=== PATIENT | female | born 1990 | race Hispanic/Latino ===

== ENCOUNTER 2019-06-12 16:55 | Emergency (ER) | payer OTHER, SELFPAY ==
[2019-06-12] MEDS ORDERED: Adacel (T-DAP) 0.5 ML SYRINGE ONE (17:44)
== END 2019-06-12 18:05 | disposition home or self-care (01) ==
LOC: ERS 16:55
DX: S61.531A Puncture wound without foreign body of right wrist, initial encounter (principal); F41.9 Anxiety disorder, unspecified; R45.851 Suicidal ideations; F43.10 Post-traumatic stress disorder, unspecified; F17.210 Nicotine dependence, cigarettes, uncomplicated; Z23 Encounter for immunization; W26.0XXA Contact with knife, initial encounter
CPT/HCPCS: 90471; 90715

== ENCOUNTER 2019-10-01 03:25 | Emergency (ER) | payer OTHER, SELFPAY ==
[2019-10-01 15:38] LABS: SARS-CoV-2 MS2 Positive; SARS-CoV-2 N Gene Negative; SARS-CoV-2 S Gene Negative; SARS-CoV-2 orf1ab Negative
== END 2019-10-01 04:32 | disposition home or self-care (01) ==
LOC: ERS 03:25
DX: J02.9 Acute pharyngitis, unspecified (principal); F43.10 Post-traumatic stress disorder, unspecified; F41.9 Anxiety disorder, unspecified; F17.210 Nicotine dependence, cigarettes, uncomplicated; Z20.828 Contact with and (suspected) exposure to other viral communicable diseases
CPT/HCPCS: 87081; 87430; 87635; 99283; U0003

== ENCOUNTER 2020-01-13 12:11 | Emergency (ER) | payer OTHER ==
[2020-01-13] MEDS ORDERED: Ketorolac Tromethamine 30 MG/ML VIAL ONE (13:07)
[2020-01-13 14:05] LABS: BHCG - Serum Negative (NEGATIVE); Pregs Control Background? CLEAR/WHITE (CLR/WHITE); Pregs Control Bar Appear? YES (CONTROL BAR)
--- NOTE | 2020-01-13 14:56 | RAD ---
Exam: 3 views lumbar spine HISTORY: Fall. Pain. Injury. COMPARISON: 07/07/2013 FINDINGS: 5 lumbar type vertebra. Preserved vertebral body heights. Mild to moderate loss of disc spa ce at L4-L5. No spondylolisthesis or spondylolysis. Straightening of lumbar lordosis is presumed to be due to patient position or muscle spasm. Visualized sacrum and bony pelvis are intact. IMPRESSION: No fracture.
== END 2020-01-13 15:12 | disposition home or self-care (01) ==
LOC: ERS 12:11
DX: S39.012A Strain of muscle, fascia and tendon of lower back, initial encounter (principal); F43.10 Post-traumatic stress disorder, unspecified; F17.210 Nicotine dependence, cigarettes, uncomplicated; W18.2XXA Fall in (into) shower or empty bathtub, initial encounter; Y92.091 Bathroom in other non-institutional residence as the place of occurrence of the external cause
CPT/HCPCS: 36415; 72100; 84703; 96372; J1885

== ENCOUNTER 2020-01-14 02:05 | Emergency (ER) | payer OTHER, SELFPAY ==
[2020-01-14] MEDS ORDERED: Morphine 4 MG/ML VIAL ONE (03:26)
[2020-01-14] MEDS ORDERED: Ketorolac Tromethamine 30 MG/ML VIAL ONE (03:26)
[2020-01-14] MEDS ORDERED: Dexamethasone 10 MG/ML VIAL ONE (03:26)
--- NOTE | 2020-01-14 07:42 | CT ---
PRELIMINARY REPORT/[facility]/EMERGENCY AFTER HOURS PROCEDURE: EXAM: CT Lumbar Spine Without Intravenous Contrast. CLINICAL HISTORY: 29-year-old female reports to the ER after having acute worsening of her back pain that started yesterday. Patient states she was sitting on the toilet yesterday when she went to wipe and had a sudden onset back pain she thinks that she strained a muscle. Patient has had difficul ty walking since then and flexing from the waist. She is more comfortable in extended position. Patient cannot raise her left leg without pain radiating down to her toes on the left side. TECHNIQUE: Axial computed tomography images of the lumbar spine without intravenous contrast. Sagitta l and coronal reformations performed. COMPARISON: None provided. FINDINGS: BONES: No acute fracture or focal osseous lesion. Bony alignment is anatomic. DISCS/DEGENERATIVE CHANGES: There is intervertebral disc space narrowing and endplate Schmorl's nodes at L4-5. No significant central canal or neural foraminal stenosis. SOFT TISSUES: The paraspinal soft tissues are unremarkable. IMPRESSION: No acute lumbar spine abnormality. Degenerative disc disease at L4-5 ELECTRONICALLY SIGNED BY: Pat Aguirre MD Jan 14, 2020 3:25:17 AM CDT FINAL REPORT: CT LUMBAR SPINE WITHOUT CONTRAST: HISTORY: Fall. Back pain. FINDINGS: No abnormality with regards to the paraspinal muscles. No retroperitoneal mass, lymphadenopathy or he matoma. Visualized solid organs have appropriate attenuation. Hypodensity in the left adnexa is incompletely evaluated but is favored to be a left ovarian cyst. Cy st measures 3.9 x 3.4 cm.. Presacral fat is preserved. 5 lumbar-type vertebrae. Lumbar spine vertebral body heights are maintained. No fracture. No spondylo listhesis or spondylolysis. Limited evaluation of the contents of the central spinal canal and neural foramina. Throughout the fouzia mbar spine, there is no significant central canal stenosis. There is a posterior disc herniation at L3-L4 with mild central canal stenosis. There is a broad-based disc bulge at L4-L5 with mild central canal stenosis. Schmorl's node along the inferior endplate of L4 is noted. IMPRESSION: 1. This report is in agreement with initial report by [facility]. 2. No evidence of fracture. 3. Posterior disc herniation at L3-L4 and L4-L5 as described above. 4. Left ovarian cyst suspected. Follow-up ultrasound in 8 weeks to ensure resolution. CODE T
== END 2020-01-14 04:16 | disposition home or self-care (01) ==
LOC: ERS 02:05
DX: M19.90 Unspecified osteoarthritis, unspecified site (principal); M54.5 Low back pain; F17.210 Nicotine dependence, cigarettes, uncomplicated; F41.9 Anxiety disorder, unspecified; Z79.899 Other long term (current) drug therapy
CPT/HCPCS: 72131; 96374; 96375; J1100; J1885; J2270

== ENCOUNTER 2020-10-19 20:38 | Emergency (ER) | payer SELFPAY ==
[2020-10-19 22:07] LABS: Bilirubin Negative (Negative); Blood, Urine 1+ (Negative); Glucose, Urine (Dipstick) Normal (Negative); Ketone, Urine Negative (Negative); Leukocyte 500 Leu/uL (Negative); Nitrite Negative (Negative); Protein, Urine (Dipstick) 10 mg/dL (Neg-Trace); Specific Gravity, Urine 1.021 (1.002-1.036); Urobilinogen Normal mg/dL (Less than 2); WBC/HPF Greater than 50 HPF (0-3)
[2020-10-19 22:08] LABS: Bacteria/HPF 1+ HPF (None Seen); Clarity Cloudy (Clear)
[2020-10-19 22:09] LABS: Pregnancy Test - Urine (BHCG) Negative (Negative); Pregu Control Background? CLEAR/WHITE (CLR/WHITE); Pregu Control Bar Appear? YES (CONTROL BAR); Specific Gravity 1.021 (1.002-1.036)
== END 2020-10-19 23:29 | disposition home or self-care (01) ==
LOC: ERS 20:38
DX: N39.0 Urinary tract infection, site not specified (principal); N94.6 Dysmenorrhea, unspecified; F17.210 Nicotine dependence, cigarettes, uncomplicated
CPT/HCPCS: 81003; 81015; 81025; 99284

== ENCOUNTER 2021-01-31 17:46 | Emergency (ER) | payer SELFPAY ==
[2021-01-31 18:45] LABS: #Eosinphils 0.1 thou/uL (0.0-0.7); #Monocytes 0.5 thou/uL (0.11-0.59); #Neutrophils 3.9 thou/uL (1.40-6.50); %Basophils 0.4 % (0.0-1.0); %Eosinophils 0.9 % (0.0-10.0); %Lymphocytes 30.8 % (21.0-51.0); %Monocytes 7.5 % (0.0-10.0); %Neutrophils 60.4 % (42.0-75.0); Hemoglobin 14.6 g/dL (12.0-16.0); Mean Corpuscular Hemoglobin 32.3 pg (27.0-31.0); Mean Platelet Volume 8.9 fL (7.4-10.4); Platelet Count 264 thou/uL (130-400); RBC Distribution Width 11.9 % (11.5-14.5); Red Blood Cell (RBC) Count 4.51 mill/uL (4.20-5.40); White Blood Cell (WBC) Count 6.5 thou/uL (4.8-10.8)
[2021-01-31 18:47] LABS: Bacteria/HPF None Seen HPF (None Seen); Bilirubin Negative (Negative); Blood, Urine Negative (Negative); Clarity Clear (Clear); Glucose, Urine (Dipstick) Normal (Negative); Ketone, Urine Negative (Negative); Leukocyte Negative Leu/uL (Negative); Nitrite Negative (Negative); Protein, Urine (Dipstick) 30 mg/dL (Neg-Trace); Specific Gravity, Urine 1.033 (1.002-1.036); Urobilinogen 3 mg/dL (Less than 2); WBC/HPF 0-3 HPF (0-3); pH, Urine 6.5 (5.0-9.0)
[2021-01-31 18:48] LABS: Pregnancy Test - Urine (BHCG) Negative (Negative); Pregu Control Background? CLEAR/WHITE (CLR/WHITE); Pregu Control Bar Appear? YES (CONTROL BAR); Specific Gravity 1.033 (1.002-1.036)
[2021-01-31 19:23] LABS: Albumin 4.4 g/dL (3.5-5.0)
[2021-01-31 19:24] LABS: Chloride 103 mmol/L (98-107); Potassium 4.1 mmol/L (3.5-5.1); Sodium 139 mmol/L (136-145)
[2021-01-31 19:25] LABS: Calcium 9.8 mg/dL (7.8-10.44); Glucose 85 mg/dL (70-105)
[2021-01-31 19:26] LABS: Globulin 3.8 g/dL (2.4-3.5); Protein, Total 8.2 g/dL (6.0-8.3)
[2021-01-31 19:27] LABS: Bilirubin, Total 0.7 mg/dL (0.2-1.2); Carbon Dioxide 25 mmol/L (22-29)
[2021-01-31 19:28] LABS: Alkaline Phosphatase 65 U/L (40-110)
[2021-01-31 19:29] LABS: Calc. Creatinine Clearance 0 mL/min (70-130)
[2021-01-31 19:30] LABS: BUN (Urea Nitrogen) 10 mg/dL (7.0-18.7)
[2021-01-31 19:31] LABS: ALT (SGPT) 22 U/L (8-55); AST (SGOT) 21 U/L (5-34)
[2021-01-31 19:35] LABS: Anion Gap 14 mmol/L (10-20)
[2021-01-31] MEDS ORDERED: cefTRIAXone\\ROCEPHIN 500 MG VIAL ONE (19:38)
[2021-01-31] MEDS ORDERED: Lidocaine 1% PF 5 ML VIAL ONE (19:38)
[2021-01-31] MEDS ORDERED: Acetaminophen 500 MG TAB ONE (19:44)
== END 2021-01-31 20:00 | disposition home or self-care (01) ==
LOC: ERS 17:46
DX: A64 Unspecified sexually transmitted disease (principal)
CPT/HCPCS: 36415; 80053; 81003; 81015; 81025; 85025; 87086; 96372; 99284; J0696

== ENCOUNTER 2021-10-20 20:37 | Emergency (ER) | payer SELFPAY ==
[2021-10-20 21:29] LABS: #Basophils 0.1 thou/uL (0.0-0.2); #Lymphocytes 3.2 thou/uL (1.20-3.40); #Monocytes 0.5 thou/uL (0.11-0.59); #Neutrophils 5.2 thou/uL (1.40-6.50); %Basophils 0.8 % (0.0-1.0); %Eosinophils 0.3 % (0.0-10.0); %Lymphocytes 35.7 % (21.0-51.0); %Monocytes 5.4 % (0.0-10.0); %Neutrophils 57.7 % (42.0-75.0); Hemoglobin 14.4 g/dL (12.0-16.0); Mean Corpuscular HGB CONC 33.3 g/dL (32.0-36.0); Mean Corpuscular Hemoglobin 32.4 pg (27.0-31.0); Mean Corpuscular Volume 97.3 fL (78.0-98.0); Mean Platelet Volume 8.6 fL (7.4-10.4); Platelet Count 276 thou/uL (130-400); RBC Distribution Width 12.4 % (11.5-14.5); Red Blood Cell (RBC) Count 4.44 mill/uL (4.20-5.40)
[2021-10-20 21:53] LABS: ALT (SGPT) 15 U/L (8-55); AST (SGOT) 16 U/L (5-34); Albumin 4.3 g/dL (3.5-5.0); Alkaline Phosphatase 68 U/L (40-110); Anion Gap 15 mmol/L (10-20); BUN (Urea Nitrogen) 14 mg/dL (7.0-18.7); Bilirubin, Total 0.3 mg/dL (0.2-1.2); Calc. Creatinine Clearance 0 mL/min (70-130); Calcium 9.8 mg/dL (7.8-10.44); Carbon Dioxide 19 mmol/L (22-29); Chloride 107 mmol/L (98-107); Estimated GFR 109; Globulin 4.1 g/dL (2.4-3.5); Glucose 98 mg/dL (70-105); Potassium 3.7 mmol/L (3.5-5.1); Protein, Total 8.4 g/dL (6.0-8.3); Sodium 137 mmol/L (136-145)
[2021-10-20] MEDS ORDERED: Lorazepam 1 MG TAB ONE (23:08)
== END 2021-10-21 01:14 | disposition home or self-care (01) ==
LOC: ERS 20:37
DX: F41.9 Anxiety disorder, unspecified (principal); E78.5 Hyperlipidemia, unspecified; E78.00 Pure hypercholesterolemia, unspecified
CPT/HCPCS: 36415; 71045; 80053; 84484; 85025; 93005

== ENCOUNTER 2023-01-30 22:13 | Emergency (ER) | payer SELFPAY ==
[2023-01-30 23:14] LABS: #Eosinphils 0.1 thou/uL (0.0-0.7); #Monocytes 0.6 thou/uL (0.11-0.59); #Neutrophils 4.5 thou/uL (1.40-6.50); %Basophils 0.4 % (0.0-1.0); %Eosinophils 1.4 % (0.0-10.0); %Lymphocytes 33.8 % (21.0-51.0); %Monocytes 7.4 % (0.0-10.0); %Neutrophils 56.9 % (42.0-75.0); Hematocrit 41.7 % (36.0-47.0); Hemoglobin 13.7 g/dL (12.0-16.0); Mean Corpuscular HGB CONC 32.9 g/dL (32.0-36.0); Mean Corpuscular Hemoglobin 31.9 pg (27.0-31.0); Platelet Count 289 10x3/uL (130-400); RBC Distribution Width 13.2 % (11.5-14.5); White Blood Cell (WBC) Count 7.9 10x3/uL (4.8-10.8)
[2023-01-30 23:24] LABS: BHCG - Serum Negative (NEGATIVE); Pregs Control Background? CLEAR/WHITE (CLR/WHITE); Pregs Control Bar Appear? YES (CONTROL BAR)
[2023-01-30 23:35] LABS: Acetaminophen Less than 10 mcg/mL (10.0-30.0); Alcohol Less than 10.0 mg/dL (Less than 10); Salicylate Less than 8.0 mg/dL (15.0-30.0)
[2023-01-30 23:36] LABS: ALT (SGPT) 29 U/L (8-55); AST (SGOT) 24 U/L (5-34); Albumin 4.5 g/dL (3.5-5.0); Alkaline Phosphatase 67 U/L (40-110); Anion Gap 14 mmol/L (10-20); BUN (Urea Nitrogen) 12 mg/dL (7.0-18.7); Bilirubin, Total 0.4 mg/dL (0.2-1.2); Calc. Creatinine Clearance 0 mL/min (70-130); Calcium 9.3 mg/dL (7.8-10.44); Carbon Dioxide 24 mmol/L (22-29); Chloride 104 mmol/L (98-107); Estimated GFR 112; Globulin 3.4 g/dL (2.4-3.5); Glucose 108 mg/dL (70-105); Potassium 3.6 mmol/L (3.5-5.1); Protein, Total 7.9 g/dL (6.0-8.3); Sodium 138 mmol/L (136-145)
[2023-01-31 00:32] LABS: Bacteria/HPF None Seen HPF (None Seen); Bilirubin Negative (Negative); Blood, Urine 3+ (Negative); CAUTI Indications for Culture Pelvic or flank pain; Clarity Extra Turbid (Clear); Glucose, Urine (Dipstick) Normal (Negative); Ketone, Urine 10 mg/dL (Negative); Leukocyte 250 Leu/uL (Negative); Nitrite Negative (Negative); Protein, Urine (Dipstick) 100 mg/dL (Neg-Trace); RBC/HPF Greater than 50 HPF (0-3); Specific Gravity, Urine 1.035 (1.002-1.036); Squamous Epithelial 21-50 HPF (0-3); Urobilinogen 3 mg/dL (Less than 2); WBC/HPF Greater than 50 HPF (0-3)
[2023-01-31 00:35] LABS: Urine Culture Reflex Yes Yes
== END 2023-01-31 01:00 | disposition home or self-care (01) ==
LOC: ERS 22:13
DX: N93.9 Abnormal uterine and vaginal bleeding, unspecified (principal); N39.0 Urinary tract infection, site not specified; R53.1 Weakness; R10.9 Unspecified abdominal pain; E78.00 Pure hypercholesterolemia, unspecified; Z87.891 Personal history of nicotine dependence
CPT/HCPCS: 36415; 80053; 80307; 81001; 84703; 85025; 87086; 99284

== ENCOUNTER 2023-09-02 19:19 | Emergency (ER) | payer OTHER | END 2023-09-02 19:34 | disposition left against medical advice (07) | LOC: ERS 19:19 | DX: Z53.21 Procedure and treatment not carried out due to patient leaving prior to being seen by health care provider (principal) ==